=== PATIENT | male | born 1950 | race Caucasian/White ===

== ENCOUNTER 2018-08-23 05:45 | Inpatient (IN) ==
--- NOTE | 2018-07-27 18:02 | EKG Report ---
Test Performed on : 07/27/2018 5:16:48 PM Test Reason : PAT Blood Pressure : / mmHG Vent. Rate : 076 BPM Atrial Rate : 076 BPM P-R Int : 146 ms QRS Dur : 094 ms QT Int : 346 ms P-R-T Axes : 023 -19 048 degrees QTc Int : 389 ms Normal sinus rhythm. Normal ECG No previous ECGs available Confirmed by Jimi PARKS, Perfecto Leone ([id number]) on 07/29/2018 9:02:15 AM
[2018-08-18 11:22] LABS: URINE SOURCE VOIDED
[2018-08-18 11:30] LABS: BASO# 0.02 X1000 (0.0-0.2); BASO% 0.3 % (0.0-0.8); EOS% 1.4 % (0.0-10.0); HEMATOCRIT 42.1 % (42.0-52.0); HEMOGLOBIN 13.7 g/dL (14.0-18.0); IMM GRAN# 0.05 X1000 (0.0-0.04); IMM GRAN% 0.7 % (0.0-0.5); LYMPH# 1.16 X1000 (1.2-3.4); LYMPH% 16.8 % (20.5-51.1); MCH 29.3 PG (27-31); MCHC 32.5 g/dL (33-37); MONO# 0.66 X1000 (0.11-0.59); MONO% 9.6 % (1.7-9.3); MPV 10.2 FL (7.4-10.4); NEUT# 4.91 X1000 (1.4-6.5); NEUT% 71.2 % (42.2-75.2); PLT 247 X1000 (130-400); RBC 4.68 XMIL (4.7-6.1); RDW 13.4 % (11.5-14.5)
[2018-08-18 11:33] LABS: BILIRUBIN URINE NEGATIVE (NEGATIVE); BLOOD URINE NEGATIVE (NEGATIVE); COLOR YELLOW; GLUCOSE URINE NEGATIVE (NEGATIVE); KETONE URINE NEGATIVE (NEGATIVE); LEUKOCYTES URINE NEGATIVE (NEGATIVE); NITRITE URINE NEGATIVE (NEGATIVE); PROTEIN URINE TRACE mg/dL (NEGATIVE); SP GRAVITY URINE 1.016; TURBIDITY URINE CLEAR (CLEAR); UROBILINOGEN URINE NORMAL (NORMAL)
[2018-08-18 11:35] LABS: UR EPITHELIAL CELLS <10 /HPF (<10); URINE BACTERIA NEGATIVE /HPF; URINE RBC <10 /HPF (<10); URINE WBC <10 /HPF (<10)
[2018-08-18 11:41] LABS: INR 0.89; PROTIME 12.8 Seconds (11.0-16.0)
[2018-08-18 11:42] LABS: PTT 28.1 Seconds (22.3-41.8)
[2018-08-18 12:00] LABS: CALCIUM 9.9 mg/dL (8.8-10.2); CREATININE 1.5 mg/dL (0.7-1.2)
[2018-08-23] MEDS ORDERED: COLACE ONE (06:06)
[2018-08-23] MEDS ORDERED: REGLAN ONE (06:06)
[2018-08-23] MEDS ORDERED: PEPCID ONE (06:06)
[2018-08-23] MEDS ORDERED: CELEBREX ONE (06:07)
[2018-08-23] MEDS ORDERED: LYRICA ONE (06:07)
[2018-08-23] MEDS ORDERED: KEFZOL 1 GM/D5W 2 GM/100 ML IVPB ONE (06:07)
[2018-08-23] MEDS ORDERED: LR 1,000 ML ONE (06:07)
[2018-08-23] MEDS ORDERED: KEFZOL 1 GM/D5W 1 GM/50 ML IVPB ONE (06:09)
[2018-08-23] MEDS ORDERED: DIPRIVAN 1% ONE (06:38)
[2018-08-23] MEDS ORDERED: FENTANYL ONE (06:39)
[2018-08-23] MEDS ORDERED: ZOFRAN ONE (06:40)
[2018-08-23] MEDS ORDERED: DECADRON ONE (06:40)
[2018-08-23] MEDS ORDERED: ROBINUL ONE ×2 (06:40→09:02)
[2018-08-23] MEDS ORDERED: ZEMURON ONE ×3 (06:40→08:19)
[2018-08-23] MEDS ORDERED: QUELICIN (DOSE) ONE (06:40)
[2018-08-23] MEDS ORDERED: XYLOCAINE-MPF 2% ONE (06:40)
[2018-08-23] MEDS ORDERED: DURAMORPH ONE (06:58)
[2018-08-23] MEDS ORDERED: MARCAINE 0.25% PF ONE (06:58)
[2018-08-23] MEDS ORDERED: TORADOL ONE (06:58)
[2018-08-23] MEDS ORDERED: SODIUM CHLORIDE 0.9% ONE (06:58)
[2018-08-23] MEDS ORDERED: CYKLOKAPRON 1,000 MG/NS 1,000 MG/100 ML IVPB ONE (06:58)
[2018-08-23] MEDS ORDERED: EXPAREL 1.3% ONE (06:59)
[2018-08-23] MEDS ORDERED: NEOSPORIN G.U. IRRIGANT ONE (06:59)
[2018-08-23] MEDS ORDERED: EPHEDRINE ONE (08:11)
[2018-08-23] MEDS ORDERED: OFIRMEV 1000 MG/ISOTONIC SOLN 0 MG/0 ML BOTTLE ONE (08:11)
[2018-08-23 08:30] LABS: URINE SOURCE CATH
[2018-08-23] MEDS ORDERED: SODIUM CHLORIDE 0.9% 10 ML ONE (08:46)
[2018-08-23] MEDS ORDERED: OFIRMEV 1000 MG/ISOTONIC SOLN 1,000 MG/100 ML BOTTLE ONE (08:51)
[2018-08-23] MEDS ORDERED: NEO-SYNEPHRINE ONE (08:59)
[2018-08-23] MEDS ORDERED: NEOSTIGMINE ONE (09:02)
[2018-08-23] MEDS ORDERED: NS 1,000 ML ONE ×2 (09:22→09:27)
[2018-08-23] MEDS: DILAUDID ONE ×2 (09:27→09:30)
[2018-08-23] MEDS ORDERED: DILAUDID ONE (09:38)
--- NOTE | 2018-08-23 09:44 | OPERATIVE NOTE ---
PROCEDURE DATE: 08/23/2018 PREOPERATIVE DIAGNOSIS: Degenerative joint disease left hip. POSTOPERATIVE DIAGNOSIS: Degenerative joint disease left hip. PROCEDURE PERFORMED: Left anterior hip replacement. SURGEON: Natanael Delgado MD. SPA MANAGER/ESTHETICIAN: YARITZA Martin. Mr. Paulino was necessary for proper retraction and manipulation during the case. ANESTHESIA: General. COMPLICATIONS: None. PROCEDURE IN DETAIL: A 68-year-old male presents for left anterior hip replacement. Risks, benefits, and no guarantees were discussed, and he is willing to proceed. He was taken to the operating room and satisfactory anesthesia obtained. The left hip was prepped and draped on the Magnet table in sterile fashion, and a time-out taken to confirm operative site, procedure, and patient. An anterior approach to the left hip was undertaken with an incision starting 1 cm distal and lateral to the anterior superior iliac spine, and carried roughly 10 to 12 cm. Dissection was carried down to the fascia of the tensor fascia carol which was split in line with the incision. Dissection was carried down to the hip capsule and cobra retractors placed over the superior and inferior aspect of the femoral neck. A capsulotomy incision was made to expose the hip joint. The C-arm was used to make an AP pelvis prior to osteotomy of the femoral neck to establish proper leg lengths. Femoral neck osteotomy was made roughly 8 mm above the lesser trochanter, and the femoral head removed. A small Cobra retractor was placed directly on acetabular bone to protect the anterior neurovascular structures. This was placed under direct palpation to ensure direct placement on bone to prevent any neurological injury. Sequential reaming under fluoroscopic guidance of the acetabulum was undertaken up to a 53 reamer. A DePuy [place] 54 outer diameter cup was impacted in the acetabulum under fluoroscopic guidance in roughly 45 degrees of abduction, and 15 degrees of anteversion. Secure press-fit fixation was achieved. An additional fixation was achieved with a 25 length screw through the cup. A 36 mm 0 degree inner diameter polyethylene bearing was impacted into the cup. The bearing cup interface and cup bone interface was checked and noted to be fully secure. Afterwards, traction was released off the leg, and the leg externally rotated and extended using the Magnet table to facilitate broaching of the proximal femur. Sequential broaching of the proximal femur with Actis stem up to a size 6 stem was undertaken. This had good axial and rotational stability. High offset geometry reproduced the anatomy most accurately with a 1.5 neck taper on the ball. Good range of motion and stability and muslim of leg length was noted. The trial stem was removed and a high offset size 6 collared Actis stem impacted in the femur with secure axial and rotational stability. A 36 mm ceramic head with a 1.5 neck taper was then impacted onto this, and the hip reduced. C-arm was used to verify accurate prosthesis placement and muslim of leg lengths. The hip was extended and externally rotated, and lowered to the floor without any anterior instability. There was no posterior instability noted with flexion and internal rotation of the hip. The wound was copiously irrigated with irrigant. A Hemovac drain was placed. The joint capsule was injected with Exparel for pain management. The fascia of the tensor was closed with a running V-Loc suture of the subcutaneous with 2-0 Vicryl, and the skin with skin krystyna. Sterile dressings completed the closure, and the patient was recovered from anesthesia and transferred to recovery room in stable condition. No intraoperative complications were noted. Instrument count and sponge count was correct at the time of closure. cc: James Delgado MD
[2018-08-23 10:27] LABS: BILIRUBIN URINE NEGATIVE (NEGATIVE); BLOOD URINE NEGATIVE (NEGATIVE); COLOR YELLOW; GLUCOSE URINE NEGATIVE (NEGATIVE); KETONE URINE NEGATIVE (NEGATIVE); NITRITE URINE NEGATIVE (NEGATIVE); PROTEIN URINE TRACE mg/dL (NEGATIVE); SP GRAVITY URINE 1.011; TURBIDITY URINE CLEAR (CLEAR); UROBILINOGEN URINE NORMAL (NORMAL)
[2018-08-23 10:28] LABS: LEUKOCYTES URINE NEGATIVE (NEGATIVE); UR EPITHELIAL CELLS <10 /HPF (<10); URINE BACTERIA NEGATIVE /HPF; URINE RBC <10 /HPF (<10); URINE WBC <10 /HPF (<10)
[2018-08-23] MEDS ORDERED: OXY IR PO PRN (10:45)
[2018-08-23] MEDS ORDERED: MORPHINE IV PRN ×3 (10:45)
[2018-08-23] MEDS ORDERED: ZOFRAN IV PRN (10:45)
[2018-08-23] MEDS ORDERED: ZOFRAN ODT PO PRN (10:45)
--- NOTE | 2018-08-23 12:56 | ORTHOPAEDICS PROGRESS NOTE ---
DATE: 08/23/2018 SUBJECTIVE DATA: Mr. Pope is seen on postop day 0 of his left total hip arthroplasty. He reports he is doing well at this time. He states he has not been up with Physical Therapy yet. He reports pain is 0/10 at this time. OBJECTIVE DATA: The patient is sitting in bed, resting comfortably, eating his dinner. There is good sensation of the left lower extremity. There are good pedal pulses. The bandages are clean and dry. There is roughly 50 mL of bloody drainage in the drain. The patient can flex his quadriceps muscles without difficulty. ASSESSMENT: Degenerative joint disease of the left hip with total hip arthroplasty. PLAN: Plan on hopefully sending Mr. Pope home in the morning. We will check back on him then and see how he is doing. Dictated by YARITZA Martin for James Delgado MD cc: YARITZA Martin MD
[2018-08-23] MEDS: NS 1,000 ML IV SCH ×2 (13:51→22:14)
[2018-08-23] MEDS ORDERED: CYKLOKAPRON 1,000 MG/NS 1,000 MG/100 ML IVPB IV ONE (14:00)
[2018-08-23] MEDS: KEFZOL 2 GM/D5W 2 GM/50 ML IVPB IV SCH ×2 (15:35→22:14)
[2018-08-23] MEDS: ULTRAM PO SCH ×2 (15:37→20:24)
[2018-08-23] MEDS: TYLENOL PO SCH ×2 (15:37→20:22)
[2018-08-23] MEDS ORDERED: CHLORASEPTIC SPRAY MT PRN (16:58)
[2018-08-23] MEDS: PERIDEX MT SCH (20:22)
[2018-08-23] MEDS: ROBAXIN PO SCH (20:22)
[2018-08-23] MEDS: COLACE PO SCH (20:22)
[2018-08-23] MEDS: CELEBREX PO SCH (20:23)
[2018-08-23] MEDS: GLUCOPHAGE PO SCH (20:23)
[2018-08-23] MEDS ORDERED: ZANTAC PO SCH (21:00)
[2018-08-23] MEDS ORDERED: MAG-OX PO SCH (21:00)
[2018-08-23] MEDS ORDERED: DESYREL PO SCH (21:00)
[2018-08-23] MEDS ORDERED: CELEBREX PO SCH (21:00)
[2018-08-23] MEDS ORDERED: MIRAPEX PO SCH (21:00)
[2018-08-24] MEDS: OXY IR PO PRN ×2 (00:57→06:29)
[2018-08-24] MEDS: NS 1,000 ML IV SCH (00:58)
[2018-08-24] MEDS: ULTRAM PO SCH ×2 (03:03→08:23)
[2018-08-24] MEDS: TYLENOL PO SCH ×2 (03:03→08:22)
[2018-08-24 06:27] LABS: HEMOGLOBIN 10.3 g/dL (14.0-18.0)
[2018-08-24 07:03] LABS: CALCIUM 7.9 mg/dL (8.8-10.2); CREATININE 1.5 mg/dL (0.7-1.2)
[2018-08-24 07:10] LABS: HEMATOCRIT 31.9 % (42.0-52.0)
--- NOTE | 2018-08-24 07:52 | ORTHOPAEDICS PROGRESS NOTE ---
DATE: 08/24/2018 SUBJECTIVE: Mr. Pope is seen postop day 1 from a hip replacement. He is afebrile with stable vital signs. He is motor and sensory intact. There are no signs of DVT. He has already mobilized. Will plan on discharging all lines and drains. He can be discharged today for outpatient followup. He is discharged on his regular medicines, including aspirin for DVT prophylaxis, Amigo 10 for pain, and Bactrim for antibiotic prophylaxis. Will see him back in 10 days for staple removal, or sooner for any worsening signs or symptoms. cc: James Delgado MD
[2018-08-24 08:14] VITALS: BP 145/74
[2018-08-24] MEDS: GLUCOPHAGE PO SCH (08:22)
[2018-08-24] MEDS: CELEBREX PO SCH (08:22)
[2018-08-24] MEDS: COLACE PO SCH (08:22)
[2018-08-24] MEDS: ROBAXIN PO SCH (08:23)
[2018-08-24] MEDS: PERIDEX MT SCH (08:24)
[2018-08-24] MEDS ORDERED: HYZAAR 100/12.5 MG TAB PO SCH (09:00)
[2018-08-24] MEDS ORDERED: HYDROCHLOROTHIAZIDE PO SCH (09:00)
[2018-08-24] MEDS ORDERED: ASPIRIN PO SCH (09:00)
== END 2018-08-24 12:30 | disposition home health service (06) | DRG 470 ==
LOC: SURHOLD 05:45 → 4N 09:03
PROVIDERS: ADMIT Orthopaedic Surgery Adult Reconstructive Orthopaedic Surgery; ATTEND Orthopaedic Surgery Adult Reconstructive Orthopaedic Surgery
CPT/HCPCS: 36415; 76000; 80048; 81001; 82948; 85014; 85018; 85025; 85610; 85730; 86850; 86900; 86901; 88304; 88311; 93005; 93010; 94761; 97110; 97116; 97162; A9270; C9290; J0131; J0330; J0690; J1100; J1170; J1885; J2274; J2275; J2370; J2405; J3010; J7030; J7120; Q9974; S0020; XXXXX